=== PATIENT | male | born 2000 | race African-American/Black ===

== ENCOUNTER 2020-12-01 01:23 | Observation (INO) | payer BC ==
[2020-12-01] MEDS ORDERED: Acetaminophen 500 MG TAB ONE (01:50)
[2020-12-01 02:00] LABS: Bilirubin Negative (Negative); Blood, Urine Negative (Negative); Clarity Clear (Clear); Glucose, Urine (Dipstick) Normal (Negative); Ketone, Urine Negative (Negative); Leukocyte Negative Leu/uL (Negative); Nitrite Negative (Negative); Protein, Urine (Dipstick) Negative (Neg-Trace); Specific Gravity, Urine 1.025 (1.002-1.036); Urobilinogen Normal mg/dL (Less than 2)
[2020-12-01 02:16] LABS: #Eosinphils 0.1 thou/uL (0.0-0.7); #Lymphocytes 0.7 thou/uL (1.20-3.40); #Monocytes 0.3 thou/uL (0.11-0.59); #Neutrophils 9.9 thou/uL (1.40-6.50); %Basophils 0.1 % (0.0-1.0); %Eosinophils 0.6 % (0.0-10.0); %Lymphocytes 6.2 % (21.0-51.0); %Monocytes 3.1 % (0.0-10.0); %Neutrophils 90.1 % (42.0-75.0); Hemoglobin 13.9 g/dL (14.0-18.0); Mean Corpuscular HGB CONC 33.9 g/dL (32.0-36.0); Mean Corpuscular Hemoglobin 29.2 pg (27.0-31.0); Mean Platelet Volume 8.9 fL (7.4-10.4); Platelet Count 205 thou/uL (130-400); RBC Distribution Width 11.2 % (11.5-14.5); Red Blood Cell (RBC) Count 4.78 mill/uL (4.70-6.10); White Blood Cell (WBC) Count 10.9 thou/uL (4.8-10.8)
[2020-12-01 02:36] LABS: ALT (SGPT) 10 U/L (8-55); AST (SGOT) 14 U/L (5-34); Albumin 4.7 g/dL (3.5-5.0); Alkaline Phosphatase 64 U/L (40-110); Anion Gap 14 mmol/L (10-20); BUN (Urea Nitrogen) 15 mg/dL (8.9-20.6); Bilirubin, Total 0.9 mg/dL (0.2-1.2); Calc. Creatinine Clearance 0 mL/min (70-130); Calcium 8.9 mg/dL (7.8-10.44); Carbon Dioxide 25 mmol/L (22-29); Chloride 106 mmol/L (98-107); Globulin 3.3 g/dL (2.4-3.5); Glucose 126 mg/dL (70-105); Lipase 35 U/L (8-78); Potassium 3.7 mmol/L (3.5-5.1); Sodium 141 mmol/L (136-145)
[2020-12-01] MEDS ORDERED: Piperacillin/Tazobactam 4.5 GM VIAL ONE (03:08)
--- NOTE | 2020-12-01 03:53 | PDOC.H&P ---
- History & Physical Encounter Time: 12/01/20 Encounter Time: 03:51 CHIEF COMPLAINT: Abdominal pain HISTORY OF PRESENT ILLNESS: 20-year-old male with 1 day history of abdominal pain. The pain is characterized as sharp and stabbing. The pain originated in the periumbilical area was generalized and aching. Over the course of the day, it settled into the right lower quadrant became more focal and sharp. Is associated with nausea and a objective fever of 101. REVIEW OF SYSTEMS: General: Denies recent weight changes, fever, or chills. Eyes: Denies visual changes, pain, or irritation ENT: Denies changes in hearing, nasal discharge, or sore throat Cardiovascular: Denies chest pain, palpitations, shortness of breath, or edema. Respiratory: Denies cough, shortness of breath, or wheezing Gastrointestinal: Positive per HPI Genitourinary: Denies frequent urination or dysuria Musculoskeletal: Denies pain or restricted motion Integumentary: Denies abnormal rashes, sores, or skin lesions Neurological: Denies numbness, tingling, or weakness. Psychiatric: Denies new onset anxiety or depression Endocrine: Denies temperature intolerances, polyuria, or excessive thirst Hematologic: Denies abnormal bruising or bleeding PAST MEDICAL HISTORY: Denies PAST SURGICAL HISTORY: Petty tooth extraction FAMILY HISTORY: Denies SOCIAL HISTORY Never smoker, denies illicit drug use, endorses occasional alcohol consumption. ALLERGIES: No known allergies PHYSICAL EXAM: Vital Signs: HR 87 BP 121/60 T 1-1.7 RR 14 SpO2 96% room air General: Alert and oriented, no acute distress ENT: Sclera anicteric, pupils equal and reactive, mucous membranes moist Neck: No jugular venous distention, trachea midline Cardiovascular: Regular rate and rhythm Pulmonary: Clear to auscultation Abdominal: Soft, nondistended, focal tenderness to palpation in the right lower quadrant consistent with acute appendicitis Genitourinary: Normal anatomy Rectal: Deferred Integument: No abnormal rashes or lesions Musculoskeletal: No gross deformities or edema, normal range of motion LABORATORY: Laboratory analysis reviewed and demonstrates a leukocytosis of 10.9 with 90% neutrophils. Hemoglobin at 13.9. Elevated creatinine 1.4. IMAGING: Computed tomography abdomen reviewed and demonstrates a dilated appendix approximately 8 mm with appendiceal wall thickening consistent with early appendicitis. No evidence of perforation. Report called to the emergency department, final report pending ASSESSMENT: -year-old male with acute appendicitis. PLAN: Place in observation Volume resuscitation Plan for laparoscopic appendectomy tomorrow morning. The relative risks and benefits of this procedure were discussed in detail with the patient, specifically addressing the risk of bleeding, damage to adjacent structures, abscess formation, and the need for additional procedures. Informed consent was obtained.
--- NOTE | 2020-12-01 08:11 | CT ---
PRELIMINARY REPORT/[facility]/EMERGENCY AFTER HOURS PROCEDURE: Receipt of this report by the clinical staff was confirmed with Vamshi Pretty RN by Jomar Irving on 2020 03:21:00 [employer]. Addendum electronically signed by Jomar Irving on December 01, 2020 3:21:25 AM [employer] EXAM: CT Abdomen and Pelvis with Intravenous Contrast CLINICAL HISTORY: Patient is a 20-year-old male presenting to the ER for abdominal pain that started today. He states t hat it was generalized initially and now is radiated to the right lower quadrant. He reports associat ed nausea and anorexia and fever. No vomiting, diarrhea or urinary symptoms. He is never had pain lik e this before TECHNIQUE: Axial computed tomography images of the abdomen and pelvis with intravenous contrast. CONTRAST: With; ISOVUE 370,80mL COMPARISON: None provided. FINDINGS: LUNG BASES: No basilar airspace consolidation or pleural effusion. LIVER: Unremarkable. GALLBLADDER AND BILE DUCTS: Unremarkable. No calcified stone. No ductal dilation. PANCREAS: Unremarkable. SPLEEN: Unremarkable. ADRENAL GLANDS: Unremarkable. KIDNEYS, URETERS, AND BLADDER: Unremarkable. No hydronephrosis or nephrolithiasis. No ureteral or bladder calculi. STOMACH AND BOWEL: No obstruction. No wall thickening. No CT evidence of colitis or acute diverticulitis. APPENDIX: Acute appendicitis. The appendix is enlarged, measuring 8 mm in diameter with wall thickening and mil d surrounding inflammatory change. PERITONEUM: No free fluid. No free air. REPRODUCTIVE: Unremarkable as visualized. VASCULATURE: No aortic aneurysm. BONES: No fracture or suspicious osseous abnormality. ABDOMINAL WALL AND SOFT TISSUES: Unremarkable. IMPRESSION: Acute appendicitis. The appendix is enlarged, measuring 8 mm in diameter with wall thickening and mil d surrounding inflammatory change. ELECTRONICALLY SIGNED BY: Adrian Fontanez MD Dec 01, 2020 3:13:24 AM [employer] This report is intended for review by the ordering physician only, in accordance of law. If you recei ve this report in error, please call [facility] at [phone]. FINAL REPORT EMERGENCY AFTER HOURS CT ABDOMEN AND PELVIS WITH CONTRAST: FINDINGS/IMPRESSION: I agree with the findings and impression given in the preliminary report per [facility] physici an. Acute appendicitis. POS: OFF
[2020-12-01] MEDS ORDERED: Ketorolac Tromethamine 30 MG/ML VIAL ONE (09:09)
[2020-12-01] MEDS ORDERED: Succinylcholine 200 MG/10 ml SYRINGE FS ONE (09:09)
[2020-12-01] MEDS ORDERED: Rocuronium Bromide 10 MG/ML (10ML VIAL) ONE (09:09)
[2020-12-01] MEDS ORDERED: Ondansetron PF 4 MG/2 ML Vial ONE (09:09)
[2020-12-01] MEDS ORDERED: Glycopyrrolate 0.2 MG/ML 5 ML SYRINGE ONE (09:09)
[2020-12-01] MEDS ORDERED: Dexamethasone 20 MG/5 ML VIAL ONE (09:09)
[2020-12-01] MEDS ORDERED: Lidocaine 1% PF 5 ML VIAL ONE (09:09)
[2020-12-01] MEDS ORDERED: PROPOFOL 200 MG/20 ML VIAL ONE (09:09)
[2020-12-01] MEDS ORDERED: Bupivacaine 0.25% HCL 30 ML VIAL ONE (09:17)
[2020-12-01] MEDS ORDERED: Lidocaine 2% w/Epinephrine 1:200K 20 ML VIAL ONE (09:17)
[2020-12-01 09:25] LABS: SARS-CoV-2 NAA Rapid Test Not Detected (NotDetected)
[2020-12-01] MEDS ORDERED: Iopamidol-370 76% 500 ML 1 ML ONE (09:48)
[2020-12-01] MEDS ORDERED: Fentanyl 100 MCG/2 ML VIAL ONE (10:01)
[2020-12-01] MEDS ORDERED: Midazolam HCl 2 mg/2 ml Vial ONE (10:01)
--- NOTE | 2020-12-01 12:15 | OP ---
DATE OF PROCEDURE: 12/01/2020 PREOPERATIVE DIAGNOSIS: Acute appendicitis. POSTOPERATIVE DIAGNOSIS: Acute appendicitis. PROCEDURE PERFORMED: Laparoscopic appendectomy. ANESTHESIA: General endotracheal. ESTIMATED BLOOD LOSS: 5 mL. FLUIDS GIVEN: 1100 mL crystalloids. COUNTS: Sponge and instrument counts were verified as correct x2. COMPLICATIONS: None apparent at the time of operation. INDICATIONS FOR OPERATION: This is a 20-year-old man, who presented with 24-hour history of abdominal pain. Clinical radiographic examination was consistent with acute appendicitis, for which the patient was brought to the operating room for appendectomy. Findings are consistent with dilated suppurative appendix. No evidence of perforation. DESCRIPTION OF PROCEDURE: Informed consent obtained from the patient, brought to the operating room, placed in supine position. Following general anesthesia, Edouard catheter was inserted and placed to bedside drain. The abdomen was sterilely prepped and draped in usual fashion. The skin below the umbilicus was infiltrated with 0.25% Marcaine with epinephrine. A small curvilinear infraumbilical incision was made using 11 scalpel. Umbilical stalk was grasped with Marcell and elevated. Veress needle was inserted through the incision and placed in the peritoneal cavity through which the abdomen was insufflated with 3 L of CO2 gas. Intraabdominal pressure was noted at 1 mmHg. Following abdominal insufflation, Veress needle was removed and a 5 mm trocar introduced using a Visiport under laparoscopy. Laparoscopy confirmed proper placement of the port. No injuries to underlying structures. Additional laparoscopy reveals the right lower quadrant partially obscured by omental adhesions. Under direct laparoscopy, two 5 mm suprapubic and left lower quadrant ports were placed after the overlying skin infiltrated with 0.25% Marcaine with epinephrine. Appropriate incision was made. The patient was placed in a Trendelenburg position and rotated to his left. I used a Prestige grasper, introduced through the left lower quadrant port site to bluntly take down omental adhesions to reveal dilated suppurative appendix. I introduced the Endo [place] forceps through the suprapubic port site grasping the appendix, which was elevated. The mesoappendix was then sterilely divided down to the base using the LigaSure device with good hemostasis. Appendix itself was divided at the appendicocecal junction between Endoloop and delivered off the abdominal cavity using an EndoCatch. Operative site inspected for good hemostasis. I then run the distal ileum from the ileocecal junction down to proximal 2 feet finding no Meckel diverticulum. Finding no other pathology laparoscopy was terminated. Fascia of the left lower quadrant port site was closed using 0 Vicryl suture and Endoclosure device under laparoscopy. Abdomen is desufflated. All ports and instruments removed and accounted for. Skin incisions were closed using 4-0 Monocryl suture in subcuticular fashion. Dermabond was applied over incisional closure. The patient tolerated the operation without any apparent complication and was returned to recovery room in satisfactory condition. Job ID: [id number]
[2020-12-01] MEDS ORDERED: Promethazine HCl 25 MG/ML VIAL ONE (12:45)
[2020-12-01] MEDS ORDERED: HYDROcodone/Acetaminophen 5/325 mg Tablet ONE (13:40)
== END 2020-12-01 13:48 | disposition home or self-care (01) ==
LOC: ERS 01:23 → INTOOBSV 03:11 → ERHOLD 03:11 → SURG A 09:30
PROVIDERS: ADMIT Surgery; ATTEND Surgery
PROC: 0DTJ4ZZ Resection of Appendix, Percutaneous Endoscopic Approach (ICD-10-PCS; principal; 2020-12-01)
DX: K35.80 Unspecified acute appendicitis (principal); K66.0 Peritoneal adhesions (postprocedural) (postinfection); Z20.822 Contact with and (suspected) exposure to COVID-19
CPT/HCPCS: 74177; 80053; 81003; 83690; 85025; 87804; 88304; 94760; 96365; J1100; J1885; J2250; J2405; J2543; J2550; J2704; J3010; Q9967; S0020; U0002